=== PATIENT | male | born 1970 | race American Indian/Alaskan Native ===

== ENCOUNTER 2017-03-14 10:59 | Outpatient (CLI) | payer OTHER ==
--- NOTE | 2017-03-14 11:28 | XRay Report ---
ROUTINE CHEST, TWO VIEWS: Fever of unknown origin. PA and lateral views demonstrate the heart and mediastinal contour to be of normal size and shape. The lungs are clear and fully expanded and the soft tissues and bony structures are normal. IMPRESSION: Normal study.
== END 2017-03-14 11:00 | disposition home or self-care (01) ==
LOC: XRAY 10:59
PROVIDERS: ATTEND Internal Medicine Nephrology
DX: R50.9 Fever, unspecified (principal)
CPT/HCPCS: 71020

== ENCOUNTER 2018-01-13 17:58 | Emergency (ER) | payer OTHER, SELFPAY ==
[2018-01-13 19:08] VITALS: BP 117/82
[2018-01-13 19:45] LABS: Bilirubin,Urine NEG (Negative); Blood,Urine NEG (Negative); Color,Urine Yellow (Yellow); Mucus,Urine FEW /HPF; Protein,Urine <15 mg/dL mg/dL (Negative)
[2018-01-13 20:43] LABS: Hemoglobin 14.2 gm/dl (11.8-15.2); Mean Corpuscular HGB Conc 33 % (32-34); Mean Corpuscular Hemoglobin 31 pg (28-32); Mean Corpuscular Volume 94 fl (84-94); Platelet Count 186 K/mm3 (140-440); Red Blood Count 4.56 M/mm3 (3.65-5.03)
[2018-01-13 20:56] LABS: BUN/Creatinine Ratio 10; Blood Urea Nitrogen 10 mg/dL (9-20); Calcium 9.2 mg/dL (8.4-10.2); Hemolysis Index 6
--- NOTE | 2018-01-13 20:59 | Emergency Department Report ---
HPI - General Chief Complaint: Urogenital-Male Time Seen by Provider: 01/13/18 20:53 - HPI HPI: Patient here complaining of right flank pain that radiated into his right lower abdomen. He states that he has a history of recurrent kidney stone and this is how it presents usually. He denies any urinary frequency urgency or burning. Denies any blood in his urine. Denies any nausea or vomiting. Denies any fever or chills. Patient reports that his pain is 10 out of 10 and feels cramping, colicky. Nothing makes pain better and nothing makes it worse. He said he took [id number] pain medication but it's not helping. Patient was lost here on 12/23/2016 for similar issues. He said a few years ago he had to have kidney stone surgery. Patient said he has a history of chronic constipation also. He does not have a urologist at present per patient. Denies any radiation of pain to his extremities. Denies any loss of bowel or bladder function. Denies any numbness or tingling to extremities ED Past Medical Hx - Past Medical History Previous Medical History?: Yes Hx Kidney Stones: Yes Hx HIV: No Additional medical history: Chronic constipation - Surgical History Past Surgical History?: Yes Additional Surgical History: Kidney stone removal - Family History Family history: hypertension - Social History Smoking Status: Never Smoker Substance Use Type: None - Medications Home Medications: Home Medications Medication Instructions Recorded Confirmed Last Taken Type HYDROcodone/APAP 7.5-325 [[place] 1 each PO Q6HR PRN #15 tablet 12/23/16 Unknown Rx 7.5/325] Bisacodyl [Dulcolax] 10 mg PO DAILY PRN 2 Days #4 tab 01/13/18 Unknown Rx Docusate Sodium [Colace] 100 mg PO BID 30 Days #60 capsule 01/13/18 Unknown Rx Ibuprofen [Motrin 800 MG tab] 800 mg PO Q8HR PRN #15 tablet 01/13/18 Unknown Rx oxyCODONE /ACETAMINOPHEN [Percocet 1 tab PO Q6HR PRN #12 tablet 01/13/18 Unknown Rx 5/325] ED Review of Systems ROS: Stated complaint: LOW BACK PAIN Other details as noted in HPI Comment: All other systems reviewed and negative Constitutional: no symptoms reported Respiratory: no symptoms reported Cardiovascular: denies: chest pain, palpitations, dyspnea on exertion, edema, syncope, paroxysmal nocturnal dyspnea Gastrointestinal: abdominal pain. denies: nausea, vomiting, diarrhea, constipation, hematemesis, melena, hematochezia Genitourinary: denies: urgency, dysuria, frequency, hematuria, discharge, testicular pain, testicular mass Musculoskeletal: back pain (right flank pain). denies: joint swelling, arthralgia, myalgia Skin: denies: rash Neurological: denies: headache, numbness, paresthesias, confusion, abnormal gait , vertigo Physical Exam - Physical Exam Vital Signs: Vital Signs 01/13/18 19:06 Temperature 98 F Pulse Rate 86 Respiratory 18 Rate Blood Pressure 117/82 O2 Sat by Pulse 86 Oximetry General: This 47-year-old male well-nourished well-developed in no acute distress. Physical Exam: Head: Normocephalic, atraumatic, no abrasion, no bruising and no contusion. Eyes: Biateral pupils equal and reactive to light, bilateral EOM intact.. Bilateral conjunctival and sclera without injection, normal accommodation. No nystagmus Mouth: Moist, no pharyngeal exudate or erythema. No peritonsillar abscesses. Uvula is midline and oral airways patent. Neck: Supple, No Cervical adenopathy, full range of motion and no C-spine tenderness. No swelling or tracheal deviation normal reflexes Cardiovascular: S1, S2. Regular rate and rhythm. No murmur. Capillary refill is less then 3 seconds. Lungs: Clear to auscultate bilaterally. No rhonchi, wheezes or rales. No chest wall tenderness. No chest contusion. No bruising to chest. MSK: Strength 5/5 in all extremities. No joint deformity or crepitus. Normal inspection. Full range of motion to all extremities. No laceration, abrasion or ecchymotic area noted. Patient able to fully flex and extend bilateral knees without any difficulties. Bilateral knees nontender to palpate. Abdomen: Non-tender to palpate in all quadrants, no guarding or rebound tenderness, positive bowel sounds in all quadrants. Right CVA tenderness No hernia, bruit or mass. No rigidity or distention. Extremities: No clubbing, cyanosis or edema. +2 pulses. No neurovascular compromise Skin: Clean, dry and intact. No rash or lesions. Neurological: GCS at 15, Pt is alert and oriented 3 speech is clear period. Bilateral hand beaver trapper strong and equal. Normal gait. Negative Romberg and no pronator drift. Normal Reflexes. No motor or sensory deficit Back: No vertebral tenderness, no paraspinal tenderness. The bend over and touch his toes without any difficulties. Ambulates without any difficulties. Psych: Normal mood and behavior ED Course Vital Signs 01/13/18 19:06 Temperature 98 F Pulse Rate 86 Respiratory 18 Rate Blood Pressure 117/82 O2 Sat by Pulse 86 Oximetry - Reevaluation(s) Reevaluation #1: 01/13/18 23:37 Patient orally hydrated in the emergency room and receive Percocet 5/325 2 tablets and Toradol 60 mg IM for pain. He voiced relief of pain. ED Medical Decision Making - Lab Data Result diagrams: 01/13/18 20:27 01/13/18 20:27 Lab Results 01/13/18 01/13/18 01/13/18 Range/Units 19:36 20:27 20:27 WBC 5.4 (4.5-11.0) K/mm3 RBC 4.56 (3.65-5.03) M/mm3 Hgb 14.2 (11.8-15.2) gm/dl Hct 43.0 (35.5-45.6) % MCV 94 (84-94) fl MCH 31 (28-32) pg MCHC 33 (32-34) % RDW 13.0 L (13.2-15.2) % Plt Count 186 (140-440) K/mm3 Sodium 138 (137-145) mmol/L Potassium 4.4 (3.6-5.0) mmol/L Chloride 99.6 (98-107) mmol/L Carbon Dioxide 26 (22-30) mmol/L Anion Gap 17 mmol/L BUN 10 (9-20) mg/dL Creatinine 1.0 (0.8-1.5) mg/dL Estimated GFR > 60 ml/min BUN/Creatinine Ratio 10 % Glucose 127 H (75-100) mg/dL Calcium 9.2 (8.4-10.2) mg/dL Urine Color Yellow (Yellow) Urine Turbidity Clear (Clear) Urine pH 5.0 (5.0-7.0) Ur Specific [place] 1.021 (1.003-1.030) Urine Protein <15 mg/dl (Negative) mg/dL Urine Glucose (UA) Neg (Negative) mg/dL Urine Ketones Neg (Negative) mg/dL Urine Blood Neg (Negative) Urine Nitrite Neg (Negative) Urine Bilirubin Neg (Negative) Urine Urobilinogen 2.0 (<2.0) mg/dL Ur Leukocyte Esterase Neg (Negative) Urine WBC (Auto) 1.0 (0.0-6.0) /HPF Urine RBC (Auto) 3.0 (0.0-6.0) /HPF U Epithel Cells (Auto) < 1.0 (0-13.0) /HPF Urine Mucus Few /HPF - Radiology Data Radiology results: report reviewed CT scan of the abdomen and pelvis without contrast reveals bilateral punctuate nonobstructive renal calculi, cholecystitis. Constipation. Patient also will cholelithiasis without any inflammatory changes. Large and small bowel loops normal caliber. Moderate stool within the majority of the colon. No inflammatory changes. The appendix is partially gas-filled and normal caliber measuring 4 mm in diameter. Bony pelvis is grossly intact. - Medical Decision Making ED course: Patient complaining and off right flank pain and history of kidney stone. CBC and BMP is stable. Urinalysis without any signs of infection. CT scan of the abdomen and pelvis reveals patient with bilateral punctuate nonobstructive renal calculi without any mention of hydronephrosis. Patient also has cholelithiasis without any inflammation and also mention of constipation which is chronic for patient. I discussed laboratory and CT scan with patient and he voiced understanding. I discussed with him that he needs to follow up with his grievance and appeals specialist which she does have one loose treat his constipation for gallstones and constipation and to follow up with [facility] for kidney stones. He has a primary care physician said also discussed him to follow up with primary care physician. Patient was given Percocet 5/325 2 tablets in the emergency room and Toradol 60 mg IM. Pain has been relieved. Patient discharged home from emergency room in stable condition with prescription for Percocet, Motrin, Colace and Dulcolax. Critical care attestation.: If time is entered above; I have spent that time in minutes in the direct care of this critically ill patient, excluding procedure time. ED Disposition Clinical Impression: Renal colic, Bilateral kidney stones, Rt flank pain Constipation Qualifiers: Constipation type: unspecified constipation type Qualified Code(s): K59.00 - Constipation, unspecified Cholelithiasis Qualifiers: Cholelithiasis location: gallbladder Cholecystitis presence: without cholecystitis Biliary obstruction: without biliary obstruction Qualified Code(s) : K80.20 - Calculus of gallbladder without cholecystitis without obstruction Disposition: DC-01 TO HOME OR SELFCARE Is pt being admited?: No Does the pt Need Aspirin: No Condition: Stable Instructions: Constipation (ED), Kidney Stones (ED), Renal Colic (ED), High Fiber Diet (ED), Flank Pain (ED) Additional Instructions: Your CT scan shows that you have gallstones without any infection. He will need to follow up with your GI doctor that he said you have managing your chronic constipation Please follow up with [facility] for bilateral kidney stone without any extraction or infection Pain medicine can cause constipation so please increase her fluid intake and take stool softener as ordered. Increase her fluid intake to 2-3 L of water daily to help flush her kidneys out Follow-up with a primary care physician. Prescriptions: Bisacodyl [Dulcolax] 10 mg PO DAILY PRN 2 Days #4 tab PRN Reason: Constipation Docusate Sodium [Colace] 100 mg PO BID 30 Days #60 capsule Ibuprofen [Motrin 800 MG tab] 800 mg PO Q8HR PRN #15 tablet PRN Reason: Pain oxyCODONE /ACETAMINOPHEN [Percocet 5/325] 1 tab PO Q6HR PRN #12 tablet PRN Reason: Pain Referrals: [facility] [Provider Group] - 01/15/18 Your, [employer] [Other] - 01/15/18 (For gallstones and constipation ) Your, PCP [Other] - 01/15/18 Forms: Work/School Release Form(ED)
--- NOTE | 2018-01-13 21:43 | Cat Scan Report ---
FINAL REPORT EXAM: CT ABDOMEN PELVIS WO CON HISTORY: flank pain, rt with h/o kidney stones COMPARISON: CT abdomen pelvis December 2016. TECHNIQUE: Contiguous axial images were obtained. Additional sagittal and coronal reformatted images were obtained. FINDINGS: Mild linear atelectasis or scarring at the lung bases. Diffuse fatty infiltration of the liver with fatty sparing along the gallbladder fossa. Tiny calcified gallstones. No gross inflammatory changes the gallbladder. Spleen, pancreas, adrenal glands are grossly unremarkable. Bilateral punctate nonobstructive renal calculi. No hydronephrosis. Aorta and IVC are normal in caliber. No distal ureteral urinary bladder calculi. Urinary bladder and prostate gland are grossly unremarkable. No free fluid or lymphadenopathy in the pelvic cavity. Large and small bowel loops normal in caliber. Moderate stool within the majority the colon. No focal inflammatory changes the bowel. The appendix is partially gas-filled and normal in caliber measuring 4 millimeters in diameter. Lumbar vertebral body heights are preserved. Bony pelvis is grossly intact. IMPRESSION: Bilateral punctate nonobstructive renal calculi. There is a single inferior right renal calculus measuring 4 millimeters and 2 millimeter punctate nonobstructive inferior left renal calculus. Cholelithiasis. No gross inflammatory changes the gallbladder. No gross focal inflammatory changes of the abdomen and pelvis.
[2018-01-13] MEDS ORDERED: TORADOL IM ONE (22:28)
[2018-01-13] MEDS ORDERED: PERCOCET 5/325 PO ONE (22:28)
== END 2018-01-13 23:59 | disposition home or self-care (01) ==
LOC: ED 17:58
DX: N20.0 Calculus of kidney (principal); K59.00 Constipation, unspecified; K80.20 Calculus of gallbladder without cholecystitis without obstruction; I10 Essential (primary) hypertension
CPT/HCPCS: 36415; 74176; 80048; 81001; 85027; 96372; 99284; J1885